=== PATIENT | female | born 1950 | race Caucasian/White ===

== ENCOUNTER 2025-04-01 15:44 | Emergency (ER) | payer MEDICARE, SELFPAY ==
[2025-04-01 15:53] VITALS: BP 171/106
[2025-04-01 16:16] LABS: Hematocrit 35.2 % (37.0-47.0); Hemoglobin 11.8 g/dL (12.0-16.0); Mean Corp Hgb Conc. 33.5 g/dL (33.0-37.0); Mean Corpuscular Volume 96.2 fL (81.0-99.0); Nucleated Red Blood Cells % 0 %; Platelet Count 222 10^3/uL (130-400); Red Cell Dist. Width 13.5 % (11.5-14.5)
[2025-04-01 16:28] LABS: Urine Character Clear (Clear)
[2025-04-01 16:38] LABS: ALT (SGPT) 23 U/L (0-35); AST (SGOT) 37 U/L (14-36); Albumin 4.7 g/dl (3.5-5.0); Alkaline Phosphatase 86 U/L (38-126); Blood Urea Nitrogen 23 mg/dl (7-17); Calcium 9.9 mg/dl (8.4-10.2); Carbon Dioxide 26 mmol/L (22-30); Chloride 104 mmol/L (98-107); Glucose 88 mg/dl (70-99); Lipase 123 U/L (23-300); Potassium 4.4 mmol/L (3.5-5.1); Sodium 138 mmol/L (135-145); Total Protein 7.6 g/dl (6.3-8.2); eGFR 39.97
[2025-04-01 16:42] LABS: Urine Red Blood Cell 0-2 /HPF (0-2)
--- NOTE | 2025-04-01 17:53 | ED.GENMED ---
Addendum entered and electronically signed by Chanelle Rao PA-C 04/04/25 07:31:
Urine culture resulted 2 different strains of E. coli greater than 100,000 CFU. Both are sensitive to Augmentin. Called patient with results states that her primary care provider started her on Augmentin yesterday. She will follow-up with her
regarding UTI.
Original Note:
History of Present Illness
General
Chief Complaint: Abdominal Pain
Time Seen by Provider: 04/01/25 17:37
History of Present Illness
History of Present Illness:
She was a 74-year-old female with past medical history of frequent UTIs currently being treated by her primary care physician along with an unknown antibiotic presents today complaining of intermittent epigastric pain after eating for several days.
No nausea or vomiting. Does not currently have the pain. Was sent in by by her primary care doctor for CAT scan.
Phy Exam
General Physical Exam
General Presentation: well appearing and no apparent distress
General Skin: warm and dry
General Habitus: normal
General Mental: alert
General Hydration: appears well hydrated
ENT Exam
ENT Exam: EOMI, pharynx normal, neck supple and normocephalic
Eye Exam
Eye Exam: PERRL, cornea clear and conjunctiva normal
Cardiovascular Exam
Cardiovascular Exam: regular rate/rhythm, no edema, no murmur and normal peripheral pulses
Pulmonary Exam
Pulmonary Exam: lungs clear, no respiratory distress, no rales, no crackles, no rhonchi, no stridor, no wheezing and no cough
Gastrointestinal Exam
Gastrointestinal Exam: normal bowel sounds, non tender, soft, no organomegaly, no pulsatile mass and non distended
Neurological Exam
Neurological Exam: alert, oriented x3, no motor deficits and speech normal
Musculoskeletal Exam
Musculoskeletal Exam: full ROM and no edema
Skin Exam
Skin Exam: normal color, warm/dry, no rash and no petechia
Psychiatric Exam
Psychiatric Exam: normal mood/affect
Course
Orders/Labs/Results
Orders:
Orders
04/01/25 16:03
Complete Blood Count/With Diff Urgent
Comprehensive Metabolic Panel Urgent
Lipase Urgent
Urinalysis Reflex To Culture Urgent
Date Specimen was Collected: 04/01/25
Time Specimen was Collected: 15:56
Urine Microscopic Reflex Cult Urgent
Urine Culture Urgent
JOHN Source: U
Specimen Description:
Date Specimen was Collected: 04/01/25
Time Specimen was Collected: 15:56
04/01/25 17:51
CT Abd/pelvis W Iv Cont Urgent
Comment:
Reason For Exam: epigastric pain
04/01/25 17:52
Add On- LAB Urgent
Tests Added?: lipase
Abnormal Lab Results
04/01/25
16:03
WBC 11.1 H 10^3/uL
(4.8-10.8)
RBC 3.66 L 10^6/uL
(4.20-5.40)
Hgb 11.8 L g/dL
(12.0-16.0)
Hct 35.2 L %
(37.0-47.0)
MCH 32.2 H pg
(27.0-31.0)
Absolute Lymphs (auto) 3.8 H 10^3/uL
(1.2-3.4)
Absolute Monos (auto) 0.7 H 10^3/uL
(0.1-0.6)
BUN 23 H mg/dl
(7-17)
Creatinine 1.4 H mg/dL
(0.6-1.0)
AST 37 H U/L
(14-36)
Urine Ketones 1+ A
(Negative)
Leukocyte Esterase Rfl 1+ A
(Negative)
Urine WBC (Reflex) 11-15 A /HPF
(0-5)
Urine Bacteria (Reflex) Many A
(Negative)
Urine Albumin (Reflex) 2+ A
(Neg - Trace)
04/01/25 16:03
04/01/25 16:03
Vital Signs
Initial and Last Documented VS:
Initial Vital Signs
Temp Pulse Resp BP Pulse Ox
36.7 C 102 16 171/106 99
04/01/25 15:53 04/01/25 15:53 04/01/25 15:53 04/01/25 15:53 04/01/25 15:53
Last Documented Vital Signs
Temp Pulse Resp BP Pulse Ox
36.7 C 102 16 171/106 99
04/01/25 15:53 04/01/25 15:53 04/01/25 15:53 04/01/25 15:53 04/01/25 19:50
MDM/Problems Addressed
Differential Diagnosis Includes:
CBC with slight leukocytosis to 11.1. Creatinine 1.4. UA mildly positive for infection which is not unexpected given that she was just diagnosed with a UTI at her primary care office today. CT scan with IV contrast ordered and shows cystitis. No
other pathology. Will discharge home. Return precautions discussed
*Pulse Oximetry
SaO2: 99
Oxygen Mode of Delivery: Room air
Patient hypoxic: no
*Critical Care Note
Total Time (30-74mins, 75-104mins- exclusive of procedures): Not Applicable
ED Attending Note
-
Portions of this chart may have been created with voice recognition software.� Occasional wrong word or��sound alike� substitutions may have occurred due to the inherent limitations of voice recognition software.
Discharge Plan
Departure
Patient Disposition: Home (Routine Discharge)
Date of Disposition: 04/01/25
Time of Disposition: 20:20
Patient with high blood pressure during this ER visit?: No
Discharge Problem:
Cystitis
Instructions: Urinary tract infection in adults - ED (DC)
Referrals:
Lore Ferguson DO [Family Provider, Internal Medicine]
Activity Restrictions/Additional Instructions:
Continue to follow-up with your primary care doctor regarding your recurrent UTIs and take your antibiotics as prescribed.
Interventions
Interventions:
*Risk Screen - Suicide Last Done: 04/01/25 15:45
*General Assessment Last Done: 04/01/25 18:01
*Neglect/Abuse Screening Last Done: 04/01/25 18:01
*ED COVID-19 Vaccine History Last Done: 04/01/25 18:01
*ED Influenza Vaccine History Last Done: 04/01/25 18:01
[facility] Fall Risk Assessment Tool Last Done: 04/01/25 18:01
IA-Pitnzt-Rexojvgkps Assessment Last Done: 04/01/25 18:01
Discharge Date and Time
Print Language: BULGARIAN
[2025-04-01 20:30] VITALS: BP 141/88
== END 2025-04-01 20:30 | disposition home or self-care (01) ==
LOC: EMR 15:44
PROVIDERS: EMERGENCY PHYSICIAN Emergency Medicine; FAMILY PHYSICIAN Internal Medicine
DX: N30.90 Cystitis, unspecified without hematuria (principal); B96.20 Unspecified Escherichia coli [E. coli] as the cause of diseases classified elsewhere; Z87.440 Personal history of urinary (tract) infections
CPT/HCPCS: 99284; 74177; 80053; 81003; 81015; 83690; 85025; 87077; 87086; 87186; Q9967